=== PATIENT | female | born 1950 | race African-American/Black ===

== ENCOUNTER 2020-02-20 13:08 | Inpatient (IN) | payer MEDICARE, OTHER ==
[~2020-02-20] VITALS: Ht 160 cm; Wt 119.7 kg
[2020-02-20] MEDS ORDERED: ALBUTEROL (0.083%) 2.5MG/3ML NEB HHN STA (14:04)
[2020-02-20] MEDS ORDERED: PREDNISONE 20MG TABLET PO STA (14:04)
[2020-02-20] MEDS ORDERED: AZITHROMYCIN 500 MG TABLET PO ONE (14:15)
[2020-02-20] MEDS ORDERED: CEFTRIAXONE 1 G PREMIX 50 ML IV ONE (14:15)
[2020-02-20 15:05] LABS: CHLORIDE 105 mEq/L (98-107)
[2020-02-20 15:10] LABS: PROTHROMBIN TIME 10.5 sec (9.6-11.0)
[2020-02-20 15:11] LABS: BASOPHILS % 0.6 % (0.0-2.0); EOSINOPHILS % 6.2 % (0.0-5.0); HEMATOCRIT. 37.1 % (36.0-48.0); LYMPHOCYTES % 33.5 % (20.0-50.0); MEAN CORPUSCULAR HEMOGLOBIN 26.9 pg (28.0-32.0); MEAN PLATELET VOLUME 8.6 fl (7.4-10.4); MONOCYTES % 8.1 % (2.0-8.0); NEUTROPHILS % 51.6 % (40.0-76.0); PLATELET 256 x1000/uL (130-400); RED BLOOD CELL COUNT 4.47 mill/uL (4.2-5.4); RED CELL DISTRIBUTION WIDTH 15.9 % (11.6-14.6)
[2020-02-20] MEDS ORDERED: GABAPENTIN 300MG CAPSULE PO ONE (18:15)
[2020-02-20] MEDS ORDERED: ALBUTEROL 6.7GM HFA INHALER ORI PRN (21:00)
[2020-02-20] MEDS ORDERED: DOCUSATE SODIUM 100MG CAPSULE PO PRN (21:00)
[2020-02-20] MEDS ORDERED: NITROGLYCERIN 0.4MG TABLET SL SL PRN (21:00)
[2020-02-20] MEDS ORDERED: ACETAMINOPHEN 325MG TABLET PO PRN (21:00)
[2020-02-20 21:58] LABS: *AMPHETAMINES SCREEN URINE NEGATIVE (NEGATIVE); *BARBITURATES SCREEN URINE NEGATIVE (NEGATIVE); *BENZODIAZEPINES SCREEN URINE NEGATIVE (NEGATIVE); *COCAINE SCREEN URINE PRESUMTIVE POSITIVE (NEGATIVE)
[2020-02-20 21:59] LABS: CANNABINOID URINE SCREEN NEGATIVE (NEGATIVE); METHADONE URINE SCREEN NEGATIVE (NEGATIVE); OPIATES URINE SCREEN NEGATIVE (NEGATIVE); PHENCYCLIDINE URINE SCREEN NEGATIVE (NEGATIVE)
[2020-02-20] MEDS ORDERED: ALBUTEROL 6.7GM HFA INHALER ORI NR (22:00)
[2020-02-20] MEDS: METHYLPREDNISOLONE SOD SUCC 125 MG/2 ML VIAL IV SCH (23:04)
[2020-02-20] MEDS: KETOROLAC 15MG/ML VIAL IV PRN (23:04)
[2020-02-20] MEDS: AMLODIPINE 10MG TABLET PO SCH (23:05)
[2020-02-20] MEDS: ASCORBIC ACID 500 MG TABLET PO SCH (23:06)
[2020-02-20] MEDS: GUAIFENESIN 200MG/10ML SUGAR FREE UDC PO PRN (23:31)
[2020-02-20] MEDS: ZOLPIDEM TARTRATE 5MG TABLET PO PRN (23:31)
[2020-02-21] VITALS (7 sets, daily range): BP systolic 123–166; BP diastolic 64–87
[2020-02-21 00:07] LABS: LDL CHOLESTEROL 110 mg/dL (5-100)
[2020-02-21 00:09] LABS: CREATINE KINASE 74 IU/L (26-192); HDL CHOLESTEROL 66 mg/dL (40-59)
[2020-02-21] MEDS ORDERED: VALS1TAB76 MT (01:50)
[2020-02-21] MEDS ORDERED: METH20CP12 PO (01:50)
[2020-02-21] MEDS ORDERED: SULF-288 MT (01:50)
[2020-02-21] MEDS ORDERED: DOCU-15 PO (01:50)
[2020-02-21] MEDS ORDERED: GABA-290 PO (01:50)
[2020-02-21] MEDS ORDERED: ONDA8TAB59 PO (01:50)
[2020-02-21] MEDS ORDERED: OMEP40CA12 PO (01:50)
[2020-02-21] MEDS ORDERED: FLUT1AER INH (01:50)
[2020-02-21] MEDS ORDERED: ALBU18HF2 IH (01:50)
[2020-02-21] MEDS ORDERED: ALBUTEROL (0.083%) 2.5MG/3ML NEB HHN PRN (03:15)
[2020-02-21] MEDS ORDERED: LACO150T2 MT (04:17)
[2020-02-21] MEDS: MAGNESIUM/ALUMINUM HYDROXIDE/SIMETHICONE 30ML UDC PO PRN ×2 (04:42→18:11)
[2020-02-21] MEDS: METHYLPREDNISOLONE SOD SUCC 125 MG/2 ML VIAL IV SCH ×3 (05:45→21:38)
[2020-02-21] MEDS: KETOROLAC 15MG/ML VIAL IV PRN ×3 (06:09→21:56)
[2020-02-21 08:44] LABS: BASOPHILS % 0.1 % (0.0-2.0); HEMATOCRIT. 38.1 % (36.0-48.0); HEMOGLOBIN. 12.4 g/dL (12.0-16.0); LYMPHOCYTES % 10.7 % (20.0-50.0); MEAN CORPUSCULAR HEMOGLOBIN 26.9 pg (28.0-32.0); MEAN PLATELET VOLUME 8.5 fl (7.4-10.4); MONOCYTES % 1.2 % (2.0-8.0); PLATELET 257 x1000/uL (130-400); RED BLOOD CELL COUNT 4.59 mill/uL (4.2-5.4); RED CELL DISTRIBUTION WIDTH 16.1 % (11.6-14.6)
[2020-02-21 08:55] LABS: PHOSPHORUS 2.4 mg/dL (2.5-4.9)
[2020-02-21] MEDS: ASPIRIN 325MG EC TABLET PO SCH (08:56)
[2020-02-21 08:58] LABS: CREATINE KINASE 74 IU/L (26-192)
[2020-02-21] MEDS: ZINC SULFATE 220 MG ( 50 ) CAPSULE PO SCH (08:58)
[2020-02-21] MEDS: AMLODIPINE 10MG TABLET PO SCH (08:58)
[2020-02-21 08:59] LABS: CREATINE KINASE MB FRACTION 2.7 ng/mL (0.5-3.6)
[2020-02-21] MEDS: GUAIFENESIN/DM 600MG/30MG ER TAB 12HR PO SCH ×2 (08:59→20:41)
[2020-02-21] MEDS: CLONIDINE 0.1MG TABLET PO PRN (08:59)
[2020-02-21] MEDS: ASCORBIC ACID 500 MG TABLET PO SCH ×2 (08:59→20:42)
[2020-02-21] MEDS: ENOXAPARIN 30MG/0.3ML SYR SUBCUT SCH ×2 (09:03→20:43)
[2020-02-21] MEDS ORDERED: IPRATROPIUM/ALBUTEROL 0.5-3(2.5)MG/3ML NEB HHN PRN (09:15)
[2020-02-21] MEDS: ONDANSETRON HCL 4MG/2ML INJ IV PRN ×2 (09:20→18:35)
[2020-02-21] MEDS ORDERED: OMEPRAZOLE 20MG CAPSULE EXTENDED RELEASE PO NR (09:30)
[2020-02-21] MEDS: ACETAMINOPHEN 325MG TABLET PO PRN (11:51)
[2020-02-21] MEDS ORDERED: CEFTRIAXONE 1 G PREMIX 50 ML IV SCH (14:00)
[2020-02-21] MEDS: CEFTRIAXONE 1,000 MG in DEXTROSE 5% WATER 50 ML IV SCH (14:10)
[2020-02-21] MEDS: IPRATROPIUM/ALBUTEROL 0.5-3(2.5)MG/3ML NEB HHN SCH ×2 (14:33→18:40)
[2020-02-21] MEDS ORDERED: AZITHROMYCIN 500 MG in DEXT 5% WATER 250 ML IV SCH (15:00)
[2020-02-21] MEDS: AZITHROMYCIN 500 MG in DEXT 5% WATER 250 ML IV SCH (15:12)
[2020-02-21] MEDS: ZOLPIDEM TARTRATE 5MG TABLET PO PRN (22:05)
[2020-02-22] VITALS: BP 145/64
[2020-02-22 04:00] VITALS: BP 150/73
[2020-02-22] MEDS: METHYLPREDNISOLONE SOD SUCC 125 MG/2 ML VIAL IV SCH ×3 (05:22→21:30)
[2020-02-22] MEDS: KETOROLAC 15MG/ML VIAL IV PRN ×2 (05:23→20:45)
[2020-02-22] MEDS: GUAIFENESIN 200MG/10ML SUGAR FREE UDC PO PRN (06:34)
[2020-02-22] MEDS ORDERED: OMEPRAZOLE 20MG CAPSULE EXTENDED RELEASE PO SCH (07:10)
[2020-02-22 08:00] VITALS: BP 156/86
[2020-02-22] MEDS: IPRATROPIUM/ALBUTEROL 0.5-3(2.5)MG/3ML NEB HHN SCH ×2 (08:08→21:13)
[2020-02-22] MEDS: ENOXAPARIN 30MG/0.3ML SYR SUBCUT SCH ×2 (08:22→20:22)
[2020-02-22] MEDS: ONDANSETRON HCL 4MG/2ML INJ IV PRN ×2 (08:22→13:09)
[2020-02-22] MEDS: AMLODIPINE 10MG TABLET PO SCH (08:23)
[2020-02-22] MEDS: ASCORBIC ACID 500 MG TABLET PO SCH ×2 (08:24→20:22)
[2020-02-22] MEDS: ZINC SULFATE 220 MG ( 50 ) CAPSULE PO SCH (08:24)
[2020-02-22] MEDS: GUAIFENESIN/DM 600MG/30MG ER TAB 12HR PO SCH ×2 (08:24→20:21)
[2020-02-22] MEDS: ASPIRIN 325MG EC TABLET PO SCH (08:24)
[2020-02-22] MEDS: LORAZEPAM 0.5MG TABLET PO PRN ×2 (08:24→14:34)
[2020-02-22] MEDS ORDERED: DIPHENHYDRAMINE 25MG CAPSULE PO PRN (10:30)
[2020-02-22 12:00] VITALS: BP 144/66
[2020-02-22] MEDS: CEFTRIAXONE 1,000 MG in DEXTROSE 5% WATER 50 ML IV SCH (15:02)
[2020-02-22 16:00] VITALS: BP 149/82
[2020-02-22] MEDS: LORATADINE 10MG TABLET PO SCH (17:12)
[2020-02-22] MEDS: AZITHROMYCIN 500 MG in DEXT 5% WATER 250 ML IV SCH (17:12)
[2020-02-22] MEDS: MONTELUKAST SODIUM 10MG TABLET PO SCH (17:12)
[2020-02-22] MEDS ORDERED: TERBUTALINE SULFATE 1MG/ML VIAL SUBCUT NR (18:00)
[2020-02-22 20:00] VITALS: BP 163/67
[2020-02-22] MEDS: FAMOTIDINE 20MG/2ML VIAL IV SCH (20:21)
[2020-02-22] MEDS: ZOLPIDEM TARTRATE 5MG TABLET PO PRN (20:22)
[2020-02-23] VITALS: BP 161/84
[2020-02-23] MEDS: IPRATROPIUM/ALBUTEROL 0.5-3(2.5)MG/3ML NEB HHN SCH ×4 (01:52→21:06)
[2020-02-23 04:00] VITALS: BP 163/72
[2020-02-23] MEDS: METHYLPREDNISOLONE SOD SUCC 125 MG/2 ML VIAL IV SCH ×3 (05:07→21:53)
[2020-02-23] MEDS: KETOROLAC 15MG/ML VIAL IV PRN (05:08)
[2020-02-23 08:00] VITALS: BP 137/74
[2020-02-23] MEDS: ASPIRIN 325MG EC TABLET PO SCH (08:33)
[2020-02-23] MEDS: LORATADINE 10MG TABLET PO SCH (08:34)
[2020-02-23] MEDS: AMLODIPINE 10MG TABLET PO SCH (08:34)
[2020-02-23] MEDS: ZINC SULFATE 220 MG ( 50 ) CAPSULE PO SCH (08:34)
[2020-02-23] MEDS: ENOXAPARIN 30MG/0.3ML SYR SUBCUT SCH ×2 (08:34→22:06)
[2020-02-23] MEDS: FAMOTIDINE 20MG/2ML VIAL IV SCH ×2 (08:34→21:53)
[2020-02-23] MEDS: ASCORBIC ACID 500 MG TABLET PO SCH ×2 (08:35→22:05)
[2020-02-23] MEDS: GUAIFENESIN/DM 600MG/30MG ER TAB 12HR PO SCH ×2 (08:35→22:05)
[2020-02-23 10:46] LABS: BG BASE EXCESS 2.3 mmol/L (-2.0-2.0); BG CARBOXYHEMOGLOBIN 0.6 % (0.5-1.5); BG DEOXYHEMOGLOBIN 6.4 % (0.0-5.0); BG FRACTION INSPIRED OXYGEN 21; BG HCO3 ACT 27.3 mmol/L (22.0-26.0); BG METHEMOGLOBIN 0.3 % (0.0-1.5); BG OXYGEN SATURATION 93.5 % (92.0-98.5); BG OXYHEMOGLOBIN 92.7 % (94.0-97.0); BG PCO2 43.7 mmHg (35.0-45.0); BG PH 7.413 (7.350-7.450); BG PO2 68.8 mmHg (75.0-100.0); BG SAMPLE SITE LEFT RADIAL; BG VENT MODE ROOM AIR
[2020-02-23 12:05] VITALS: BP 171/83
[2020-02-23] MEDS: ACETAMINOPHEN 325MG TABLET PO PRN ×2 (12:20→22:04)
[2020-02-23] MEDS: CLONIDINE 0.1MG TABLET PO PRN ×2 (12:21→22:05)
[2020-02-23] MEDS ORDERED: BISACODYL 5MG TABLET PO PRN (13:15)
[2020-02-23] MEDS ORDERED: POLYETHYLENE GLYCOL 3350 (17GM) 1 DOSE PACK PO SCH (13:15)
[2020-02-23] MEDS: AZITHROMYCIN 500 MG in DEXT 5% WATER 250 ML IV SCH (15:58)
[2020-02-23] MEDS: CEFTRIAXONE 1,000 MG in DEXTROSE 5% WATER 50 ML IV SCH (15:59)
[2020-02-23 16:00] VITALS: BP 121/49
[2020-02-23] MEDS: MONTELUKAST SODIUM 10MG TABLET PO SCH (16:03)
[2020-02-23 20:00] VITALS: BP 183/93
[2020-02-23] MEDS ORDERED: LIDOCAINE HCL/PF 1% 2ML VIAL ONE (20:16)
[2020-02-23] MEDS: ZOLPIDEM TARTRATE 5MG TABLET PO PRN (22:04)
[2020-02-24] VITALS: BP 150/62
[2020-02-24] MEDS: IPRATROPIUM/ALBUTEROL 0.5-3(2.5)MG/3ML NEB HHN SCH ×2 (01:51→10:06)
[2020-02-24 04:00] VITALS: BP 120/78
[2020-02-24] MEDS: METHYLPREDNISOLONE SOD SUCC 125 MG/2 ML VIAL IV SCH ×2 (05:38→14:00)
[2020-02-24 08:00] VITALS: BP 152/83
[2020-02-24] MEDS: GUAIFENESIN/DM 600MG/30MG ER TAB 12HR PO SCH (08:55)
[2020-02-24] MEDS: LORATADINE 10MG TABLET PO SCH (08:55)
[2020-02-24] MEDS: ZINC SULFATE 220 MG ( 50 ) CAPSULE PO SCH (08:55)
[2020-02-24] MEDS: ASCORBIC ACID 500 MG TABLET PO SCH (08:55)
[2020-02-24] MEDS: FAMOTIDINE 20MG/2ML VIAL IV SCH (08:56)
[2020-02-24] MEDS: AMLODIPINE 10MG TABLET PO SCH (08:56)
[2020-02-24] MEDS: ENOXAPARIN 30MG/0.3ML SYR SUBCUT SCH (08:57)
[2020-02-24] MEDS: ASPIRIN 325MG EC TABLET PO SCH (09:00)
[2020-02-24 11:58] VITALS: BP 143/64
[2020-02-24] MEDS: CEFTRIAXONE 1,000 MG in DEXTROSE 5% WATER 50 ML IV SCH (14:00)
[2020-02-24] MEDS ORDERED: AZITHROMYCIN 250 MG TABLET PO SCH (15:00)
[2020-02-24 15:16] VITALS: BP 140/69
[2020-02-24] MEDS ORDERED: PNEUMOCOCCAL 23-VAL P-SAC VAC 0.5 ML IM ONE (16:00)
== END 2020-02-24 16:05 | disposition home health service (06) | DRG 205 ==
LOC: ER 13:23 → 7WST 16:46 → EDBEDREQTM 16:48 → EDBEDREQ 16:48 → ENRESERV 20:47 → SUPCPDRO 21:00 → 8WST 02-21 03:08
PROVIDERS: ADMIT Internal Medicine; ATTEND Internal Medicine
DX: J68.0 Bronchitis and pneumonitis due to chemicals, gases, fumes and vapors (principal); J96.01 Acute respiratory failure with hypoxia; J45.901 Unspecified asthma with (acute) exacerbation; I10 Essential (primary) hypertension; G35 Multiple sclerosis; F14.90 Cocaine use, unspecified, uncomplicated; Z20.828 Contact with and (suspected) exposure to other viral communicable diseases; M19.90 Unspecified osteoarthritis, unspecified site
CPT/HCPCS: 36415; 36600; 71045; 80053; 80061; 80305; 82375; 82550; 82553; 82728; 82805; 83036; 83605; 83615; 83735; 83880; 84100; 84145; 84484; 85025; 85379; 87426; 90732; 93005; 93306; 93970; 94640; 96365; 97116; 97162; 97166; 97530; 99291; J0456; J0696; J1650; J1885; J2405; J2930; J3105; J3490; J7060; J7512; Q0163

== ENCOUNTER 2020-03-25 13:11 | Emergency (ER) | payer OTHER, MEDICAID ==
[~2020-03-25] VITALS: Ht 162.6 cm; Wt 77.0 kg
[~2020-03-25 13:11] MED LIST: ALBU18HF2 IH; DOCU-15 PO; FLUT1AER INH; GABA-290 PO; LACO150T2 MT; METH20CP12 PO; OMEP40CA12 PO; ONDA8TAB59 PO; SULF-288 MT; VALS1TAB76 MT
[2020-03-25] MEDS ORDERED: HYDROCODONE/ACETAMINOPHEN 5/325MG TABLET PO ONE (13:45)
[2020-03-25 15:48] VITALS: BP 148/78
== END 2020-03-25 15:50 | disposition home or self-care (01) ==
LOC: ER 13:11
DX: M79.18 Myalgia, other site (principal); M79.671 Pain in right foot; J45.909 Unspecified asthma, uncomplicated; I10 Essential (primary) hypertension; Z79.899 Other long term (current) drug therapy
CPT/HCPCS: 73630; 99283

== ENCOUNTER 2022-01-30 14:22 | Emergency (ER) | payer OTHER, MEDICAID ==
[~2022-01-30] VITALS: Ht 157.5 cm; Wt 91.0 kg
[~2022-01-30 14:22] MED LIST changes: -OMEP40CA12 PO; +OMEP40CA20 PO; +SULF-13 MT; -SULF-288 MT
[2022-01-30 14:29] VITALS: BP 174/84
[2022-01-30] MEDS ORDERED: KETOROLAC 30MG/ML VIAL IV STA (19:40)
[2022-01-30] MEDS ORDERED: SODIUM CHLORIDE 0.9% 1,000 ML IV ONE (19:45)
[2022-01-30 20:02] LABS: BASOPHILS % 0.6 % (0.0-2.0); EOSINOPHILS % 6.7 % (0.0-5.0); HEMATOCRIT. 38.1 % (36.0-48.0); LYMPHOCYTES % 37.7 % (20.0-50.0); MEAN CORPUSCULAR HEMOGLOBIN 25.8 pg (28.0-32.0); MEAN CORPUSCULAR VOLUME 81.6 fL (81.0-99.0); MEAN PLATELET VOLUME 8.4 fl (7.4-10.4); MONOCYTES % 7.3 % (2.0-8.0); NEUTROPHILS % 47.7 % (40.0-76.0); PLATELET 254 x1000/uL (130-400); RED BLOOD CELL COUNT 4.66 mill/uL (4.2-5.4); RED CELL DISTRIBUTION WIDTH 15.1 % (11.6-14.6)
[2022-01-30 20:08] LABS: CHLORIDE 102 mEq/L (98-107)
[2022-01-30 20:11] LABS: PROTHROMBIN TIME 10.3 sec (9.6-11.0)
[2022-01-30 20:13] LABS: CLARITY URINE CLEAR (CLEAR); COLOR URINE YELLOW (YELLOW); KETONES URINE NEGATIVE (NEGATIVE); LEUKOCYTE ESTERASE URINE 1+ (NEGATIVE); NITRITE URINE NEGATIVE (NEGATIVE); OCCULT BLOOD URINE NEGATIVE (NEGATIVE); PROTEIN URINE NEGATIVE (NEGATIVE); SPECIFIC GRAVITY URINE 1.021 (1.005-1.030)
[2022-01-30] MEDS ORDERED: CEFTRIAXONE 1 G PREMIX 50 ML IV ONE (22:15)
[2022-01-30] MEDS ORDERED: KETOROLAC 15MG/ML VIAL IV ONE (22:15)
[2022-01-30] MEDS ORDERED: NAPR-681 MT (23:04)
[2022-01-30] MEDS ORDERED: CIPR-263 MT (23:04)
== END 2022-01-30 23:15 | disposition home or self-care (01) ==
LOC: ER 14:22
DX: N39.0 Urinary tract infection, site not specified (principal); I10 Essential (primary) hypertension; E11.9 Type 2 diabetes mellitus without complications; G40.909 Epilepsy, unspecified, not intractable, without status epilepticus; G35 Multiple sclerosis; M19.90 Unspecified osteoarthritis, unspecified site
CPT/HCPCS: 36415; 74176; 80053; 81003; 82962; 85025; 85610; 96365; 96375; 96376; 99284; J0696; J1885; J7030